=== PATIENT | female | born 1990 | race Caucasian/White ===

== ENCOUNTER 2019-04-16 15:08 | Emergency (ER) | payer SELFPAY ==
[2019-04-16 16:21] VITALS: BP 124/80
--- NOTE | 2019-04-16 16:24 | Event Note ---
ED Screening Note Date of service: 04/16/19 Time: 16:20 ED Screening Note: 28 y o female presents with fever, coughing and one episode of vomitting x today no sick contacts This initial assessment/diagnostic orders/clinical plan/treatment(s) is/are subject to change based on patients health status, clinical progression and re- assessment by fellow clinical providers in the ED. Further treatment and workup at subsequent clinical providers discretion. Patient/guardian urged not to elope from the ED as their condition may be serious if not clinically assessed and managed. Initial orders include: ua , upt , cxr
[2019-04-16 16:41] LABS: HCG Qualitative,Urine Negative (Negative)
[2019-04-16 16:46] LABS: Bilirubin,Urine NEG (Negative); Blood,Urine SM (Negative); Color,Urine Yellow (Yellow); Mucus,Urine FEW /HPF; Protein,Urine <15 mg/dL mg/dL (Negative)
--- NOTE | 2019-04-16 17:33 | XRay Report ---
CHEST 2 VIEWS INDICATION / CLINICAL INFORMATION: cough. COMPARISON: None available. FINDINGS: SUPPORT DEVICES: None. HEART / MEDIASTINUM: No significant abnormality. LUNGS / PLEURA: No significant pulmonary or pleural abnormality. No pneumothorax. ADDITIONAL FINDINGS: No significant additional findings. IMPRESSION: 1. No acute findings. Signer Name: Boom Arellano MD Signed: 04/16/2019 5:28 PM Workstation Name: [id number]
[2019-04-16] MEDS ORDERED: ACETAMINOPHEN 325 MG TAB PO ONE (18:44)
[2019-04-16] MEDS ORDERED: ACETAMINOPHEN 325 MG TAB ONE (18:46)
--- NOTE | 2019-04-16 19:49 | Emergency Department Report ---
ED General Adult HPI - General Chief complaint: Upper Respiratory Infection Stated complaint: COLD/FEVER/BODY PAIN Time Seen by Provider: 04/16/19 18:20 Source: patient Mode of arrival: Ambulatory Limitations: No Limitations - History of Present Illness Initial comments: 19yo female states that she has been feeling flu-like symptoms including body aches, cough and fever x 4 days. Pt states that she took Tylenol and OTC cold meds with no relief. -: days(s) (4) Location: head, chest, upper extremity (bialteral arms) Radiation: non-radiation Severity scale (0 -10): 6 Quality: aching Improves with: none Worsens with: none Associated Symptoms: fever/chills, malaise Treatments Prior to Arrival: other (Tylenol along with Cold and sinus medications) - Related Data Previous Rx's Medication Instructions Recorded Last Taken Type Oseltamivir [Tamiflu] 75 mg PO BID 5 Days #10 cap 04/17/19 Unknown Rx Allergies Allergy/AdvReac Type Severity Reaction Status Date / Time No Known Allergies Allergy Verified 04/16/19 15:10 ED Review of Systems ROS: Stated complaint: COLD/FEVER/BODY PAIN Other details as noted in HPI Comment: All other systems reviewed and negative Constitutional: fever, malaise Respiratory: cough ED Past Medical Hx - Past Medical History Previous Medical History?: No - Surgical History Past Surgical History?: No - Social History Smoking Status: Unknown if ever smoked Substance Use Type: None - Medications Home Medications: Home Medications Medication Instructions Recorded Confirmed Last Taken Type Oseltamivir [Tamiflu] 75 mg PO BID 5 Days #10 cap 04/17/19 Unknown Rx ED Physical Exam - General Limitations: No Limitations General appearance: alert, in no apparent distress - Head Head exam: Present: atraumatic, normocephalic - Eye Eye exam: Present: normal appearance, PERRL, EOMI Pupils: Present: normal accommodation, irregular - ENT ENT exam: Present: normal exam, normal orophraynx, normal external ear exam - Neck Neck exam: Present: tenderness, full ROM, lymphadenopathy (anterior cervical lymph node tenderness) - Respiratory Respiratory exam: Present: normal lung sounds bilaterally. Absent: respiratory distress, wheezes, chest wall tenderness, accessory muscle use - Cardiovascular Cardiovascular Exam: Present: regular rate, normal rhythm, normal heart sounds - GI/Abdominal GI/Abdominal exam: Present: soft, normal bowel sounds. Absent: distended, tenderness - Rectal Rectal exam: Present: deferred - Extremities Exam Extremities exam: Present: normal inspection, full ROM. Absent: tenderness - Back Exam Back exam: Present: normal inspection, full ROM. Absent: tenderness, CVA tenderness (R), CVA tenderness (L) - Neurological Exam Neurological exam: Present: alert, altered, oriented X3, normal gait - Psychiatric Psychiatric exam: Present: normal affect, normal mood. Absent: depressed - Skin Skin exam: Present: warm, dry, intact, normal color ED Course Vital Signs 04/16/19 04/16/19 16:19 18:23 Temperature 102.8 F H 102.1 F H Pulse Rate 109 H Respiratory 20 Rate Blood Pressure 124/80 O2 Sat by Pulse 100 Oximetry ED Medical Decision Making - Medical Decision Making 19yo female states that she has been feeling flu-like symptoms including body aches, cough and fever x 4 days. Pt states that she took Tylenol and OTC cold meds with no relief. Pt was given Tylenol in clinic and a Flu test was obtained. Pt was informed that due to her physical exam and presentation that treatment for the Flu will be given. She was instructed to return to the ER as needed and a work excuse was given. Pt verbalized understanding and agreed with the plan of care. Critical care attestation.: If time is entered above; I have spent that time in minutes in the direct care of this critically ill patient, excluding procedure time. ED Disposition Disposition: DC-01 TO HOME OR SELFCARE Is pt being admited?: No Does the pt Need Aspirin: No Condition: Stable Instructions: Influenza (ED) Additional Instructions: Pt was informed that due to her physical exam and presentation that treatment for the Flu will be given. She was instructed to return to the ER as needed and a work excuse was given. Pt verbalized understanding and agreed with the plan of care. Prescriptions: Oseltamivir [Tamiflu] 75 mg PO BID 5 Days #10 cap Time of Disposition: 00:19
== END 2019-04-17 00:30 | disposition home or self-care (01) ==
LOC: ED 15:08
DX: R50.9 Fever, unspecified (principal); R05 Cough; R11.10 Vomiting, unspecified; Z79.899 Other long term (current) drug therapy
CPT/HCPCS: 71046; 81001; 81025; 87400